=== PATIENT | male | born 1985 ===

== ENCOUNTER 2018-06-05 09:53 | Inpatient (IN) | payer BC ==
[2018-06-05 10:04] VITALS: BMI 36.1
--- NOTE | 2018-06-05 10:51 | ED PDOC ---
HPI: Back Additional Complaint(s): Pt is a 32 y/o male with hx of Lumbar disc herniation w/ nerve impingement presents to ED for Laminectomy tomorrow under Dr. Bess. At moment states he has dull ache in lower back that is manageable and does not need any analgesic medication. <Sruthi Muñoz - Last Filed: 06/06/18 08:46> <Brittani Weber - Last Filed: 06/06/18 08:50> Time Seen by Provider: 06/05/18 10:15 Chief Complaint (Nursing): Back Pain Past Medical History Reviewed: Historical Data, Nursing Documentation, Vital Signs Vital Signs: Last Vital Signs Temp 98.1 F 06/05/18 10:20 Pulse 86 06/05/18 10:20 Resp 18 06/05/18 10:20 BP 147/85 06/05/18 10:20 Pulse Ox 97 06/05/18 10:20 - Medical History PMH: No Chronic Diseases, Asthma - Surgical History Surgical History: No Surg Hx - Family History Family History: States: No Known Family Hx - Social History Ex-Smoker (has not smoked in the last 12 months): No <Sruthi Muñoz - Last Filed: 06/06/18 08:46> Reviewed: Historical Data Vital Signs: Last Vital Signs Temp 98.6 F 06/06/18 08:20 Pulse 60 06/06/18 08:20 Resp 20 06/06/18 08:20 BP 129/69 06/06/18 08:20 Pulse Ox 97 06/06/18 08:48 <Brittani Weber - Last Filed: 06/06/18 08:50> - Home Medications Home Medications: Ambulatory Orders Medication Instructions Recorded Naproxen Sodium [Aleve] 2 tab PO DAILY PRN 06/05/18 - Allergies Allergies/Adverse Reactions: Allergies Allergy/AdvReac Type Severity Reaction Status Date / Time shrimp Allergy ITCHING Uncoded 06/05/18 17:18 Supervising Attending Note - Supervising Attending Note The Documented history was done by the: Physician Flight Crew Ordnanceman, Attending Physician The documented physical exam was done by the: Physician Flight Crew Ordnanceman, Attending Physician The documented procedures were done by the: Physician Flight Crew Ordnanceman, Attending Physic kassi - Attestation: I have personally seen and examined this patient.: Yes I have fully participated in the care of the patient.: Yes I have reviewed all pertinent clinical information: Yes <Brittani Weber - Last Filed: 06/06/18 08:50> Review of Systems Constitutional: Negative for: Fever, Chills Cardiovascular: Negative for: Chest Pain, Palpitations Respiratory: Negative for: Cough, Shortness of Breath Gastrointestinal: Negative for: Nausea, Vomiting, Abdominal Pain Genitourinary Male: Negative for: Dysuria Neurological: Negative for: Weakness, Numbness, Incoordination <Sruthi Muñoz - Last Filed: 06/06/18 08:46> ROS Statement: Except As Marked, All Systems Reviewed And Found Negative <Brittani Weber - Last Filed: 06/06/18 08:50> Physical Exam - Physical Exam Appears: Positive for: Well, No Acute Distress Head Exam: Positive for: NORMAL INSPECTION Skin: Positive for: Normal Color Eye Exam: Positive for: Normal appearance Neck: Positive for: Normal Cardiovascular/Chest: Positive for: Regular Rate, Rhythm Respiratory: Positive for: Normal Breath Sounds Gastrointestinal/Abdominal: Positive for: Normal Exam, Bowel Sounds Back: Positive for: Normal Inspection, Decreased ROM (limited by pain with extension). Negative for: Vertebral Tenderness DTR - Knee (L): 2+ Neurologic/Psych: Positive for: Alert, Oriented. Negative for: Motor/Sensory Deficits <Sruthi Muñoz - Last Filed: 06/06/18 08:46> - Reviewed Nursing Documentation Reviewed: Yes Vital Signs Reviewed: Yes <Brittani Weber - Last Filed: 06/06/18 08:50> - Laboratory Results Result Diagrams: 06/05/18 11:43 06/05/18 11:43 - ECG O2 Sat by Pulse Oximetry: 97 <Sruthi Muñoz - Last Filed: 06/06/18 08:46> - Laboratory Results Result Diagrams: 06/05/18 11:43 06/05/18 11:43 Lab Results: PT 11.5 Seconds (9.8-13.1) 06/05/18 11:43 INR 1.0 06/05/18 11:43 APTT 29.6 Seconds (25.6-37.1) 06/05/18 11:43 Urine Color Yellow (YELLOW) 06/05/18 13:25 Urine Clarity Slighty-cloudy (Clear) 06/05/18 13:25 Urine pH 7.0 (5.0-8.0) 06/05/18 13:25 Ur Specific [place] 1.021 (1.003-1.030) 06/05/18 13:25 Urine Protein Negative mg/dL (NEGATIVE) 06/05/18 13:25 Urine Glucose (UA) Neg mg/dL (NEGATIVE) 06/05/18 13:25 Urine Ketones Negative mg/dL (NEGATIVE) 06/05/18 13:25 Urine Blood Negative (NEGATIVE) 06/05/18 13:25 Urine Nitrate Negative (NEGATIVE) 06/05/18 13:25 Urine Bilirubin Negative (NEGATIVE) 06/05/18 13:25 Urine Urobilinogen 0.2-1.0 mg/dL (0.2-1.0) 06/05/18 13:25 Ur Leukocyte Esterase Neg Naif/uL (Negative) 06/05/18 13:25 Urine RBC (Auto) 1 /hpf (0-3) 06/05/18 13:25 Urine Microscopic WBC 1 /hpf (0-5) 06/05/18 13:25 Ur Squamous Epith Cells < 1 /hpf (0-5) 06/05/18 13:25 <Brittani Weber - Last Filed: 06/06/18 08:50> Medical Decision Making Medical Decision Making: PReop studies sent: CBC, BMP, COags, EKG- sinus ana maría, Cxray. For Laminectomy <Sruthi Muñoz - Last Filed: 06/06/18 08:46> Disposition - Patient ED Disposition Is Patient to be Admitted: Yes Doctor Will See Patient In The: Hospital Counseled Patient/Family Regarding: Studies Performed, Diagnosis, Need For Followup - Disposition Disposition Time: 15:00 <Sruthi Muñoz - Last Filed: 06/06/18 08:46> Discussed With Dr.: Min Alcantar Doctor Will See Patient In The: ED - Disposition Disposition Time: 11:00 - Pt Status Changed To: Hospital Disposition Of: Inpatient - Admit Certification Admit to Inpatient:: After my assessment, the patient will require hospitalization for at least two midnights. This is because of the severity of symptoms shown, intensity of services needed, and/or the medical risk in this patient being treated as an outpatient. - POA Present On Arrival: None <Brittani Weber - Last Filed: 06/06/18 08:50> - Clinical Impression Clinical Impression: Back pain - Disposition Condition: FAIR
[2018-06-05 11:57] LABS: BASO % 0.4 % (0.0-2.0); EOS # 0.1 K/uL (0.0-0.7); HEMOGLOBIN 14.1 g/dL (12.0-18.0); LYMPH # 2.6 K/uL (1.0-4.3); LYMPH % 35.4 % (20.0-40.0); MEAN CORPUSCULAR HEMOGLOBIN 29.7 pg (27.0-31.0); MEAN CORPUSCULAR HGB CONC 34.1 g/dL (33.0-37.0); MEAN PLATELET VOLUME 8.4 fl (7.2-11.7); MONO # 0.7 K/uL (0.0-0.8); MONO % 9.5 % (0.0-10.0); NEUT # 3.9 K/uL (1.8-7.0); NEUT % 53.7 % (50.0-75.0); NRBC % 0.2 % (0.0-0.0); RBC 4.74 Mil/uL (4.40-5.90); RED CELL DISTRIBUTION WIDTH 13.1 % (11.5-14.5); WHITE BLOOD COUNT 7.3 K/uL (4.8-10.8)
[2018-06-05 12:04] LABS: PROTHROMBIN TIME 11.5 Seconds (9.8-13.1)
[2018-06-05 12:07] LABS: PARTIAL THROMBOPLASTIN TIME 29.6 Seconds (25.6-37.1)
[2018-06-05 12:14] LABS: BLOOD UREA NITROGEN 13 mg/dl (9-20); CALCIUM 9.8 mg/dL (8.4-10.2); GFR NON-AFRICAN AMERICAN > 60
--- NOTE | 2018-06-05 12:34 | RAD ---
Date of service: 06/05/2018 HISTORY: pre-op clearance COMPARISON: No prior. FINDINGS: LUNGS: The lungs are well inflated and clear. PLEURA: No pleural effusions or pneumothorax. CARDIOVASCULAR: The heart is normal in size. No aortic atherosclerotic calcifications present. OSSEOUS STRUCTURES: Within normal limits for the patient's age. VISUALIZED UPPER ABDOMEN: Normal. OTHER FINDINGS: None. IMPRESSION: No active pulmonary disease.
[2018-06-05 14:00] LABS: SQUAMOUS EPITHIAL < 1 /hpf (0-5); URINE BILIRUBIN NEGATIVE (NEGATIVE); URINE BLOOD NEGATIVE (NEGATIVE); URINE CLARITY SLIGHTY-CLOUDY (Clear); URINE COLOR YELLOW (YELLOW); URINE GLUCOSE (UA) NEG (NEGATIVE); URINE LEUKOCYTE ESTERASE NEG Leu/uL (Negative); URINE PROTEIN NEGATIVE (NEGATIVE); URINE UROBILINOGEN 0.2-1.0 mg/dL (0.2-1.0)
--- NOTE | 2018-06-05 16:44 | CP.PCM.CON ---
History of Present Illness - History of Present Illness History of Present Illness: Neurosurgical consult: Dr. Bess Patient is a 32 y/o male with complaints of severe lower back pain radiating to his LLE. 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 The pain has progressively worsened over the past few months, resistant to conservative means with exercises and oral medications. He has had difficulties with his daily activities, especially sitting, due to the pain. There is radiating pain/numbness and tingling that travels down LLE frequently. He denies any bowel/bladder dysfunction. He denies CP/SOB/N/V/D/fever/dysuria/melena. PMH: Asthma PSH: none meds: Aleve prn pain allergy: shrimp SH: denies tobacco, ETOH socially, denies drug use Review of Systems - Review of Systems All systems: reviewed and no additional remarkable complaints except Review of Systems: as per HPI Past Patient History - Past Medical History & Family History Past Medical History?: Yes Past Family History: Reviewed and not pertinent - Past Social History Smoking Status: Never Smoked Alcohol: Social Drugs: Denies - CARDIAC Hx Cardiac Disorders: No - PULMONARY Hx Respiratory Disorders: Yes (asthma) Hx Asthma: Yes (last attack 2015) - NEUROLOGICAL Hx Neurological Disorder: No - HEENT Hx HEENT Problems: No Other/Comment: wears glasses - RENAL Hx Chronic Kidney Disease: No - ENDOCRINE/METABOLIC Hx Endocrine Disorders: No - HEMATOLOGICAL/ONCOLOGICAL Hx Blood Disorders: No Hx AIDS: No Hx Human Immunodeficiency Virus (HIV): No (denies) - INTEGUMENTARY Hx Dermatological Problems: No - MUSCULOSKELETAL/RHEUMATOLOGICAL Hx Musculoskeletal Disorders: Yes Hx Falls: No Hx Herniated Disk: Yes (L5-S1) Other/Comment: herniated disc w stenosis - GASTROINTESTINAL Hx Gastrointestinal Disorders: No - GENITOURINARY/GYNECOLOGICAL Hx Genitourinary Disorders: No - PSYCHIATRIC Hx Psychophysiologic Disorder: No Hx Substance Use: No - SURGICAL HISTORY Hx Surgeries: No - ANESTHESIA Hx Anesthesia: No Meds Allergies/Adverse Reactions: Allergies Allergy/AdvReac Type Severity Reaction Status Date / Time shrimp Allergy ITCHING Uncoded 06/05/18 17:18 - Medications Medications: as per med rec Physical Exam - Constitutional Appears: Well, No Acute Distress - Head Exam Head Exam: ATRAUMATIC, NORMOCEPHALIC - Eye Exam Eye Exam: EOMI, Normal appearance, PERRL - ENT Exam ENT Exam: Mucous Membranes Moist - Respiratory Exam Respiratory Exam: NORMAL BREATHING PATTERN - GI/Abdominal Exam GI & Abdominal Exam: Soft. absent: Tenderness - Back Exam Additional comments: No midline or paraspinal tenderness no lesions/masses/erythema sensation intact SP/DP/TN motor intact EHL/FHL/TA/G, diminished to LLE neg clonus neg SLR b/l - Neurological Exam Neurological exam: Alert, CN II-XII Intact, Oriented x3 - Psychiatric Exam Psychiatric exam: Normal Affect, Normal Mood - Skin Skin Exam: Normal Color, Warm Results - Vital Signs Recent Vital Signs: Last Vital Signs Temp 98.1 F 06/05/18 15:39 Pulse 73 06/05/18 15:39 Resp 16 06/05/18 15:39 BP 142/76 06/05/18 15:39 Pulse Ox 97 06/05/18 15:39 - Labs Result Diagrams: 06/05/18 11:43 06/05/18 11:43 Labs: Laboratory Results - last 24 hr 06/05/18 06/05/18 06/05/18 11:43 11:43 11:43 WBC 7.3 RBC 4.74 Hgb 14.1 Hct 41.3 MCV 87.0 MCH 29.7 MCHC 34.1 RDW 13.1 Plt Count 255 MPV 8.4 Neut % (Auto) 53.7 Lymph % (Auto) 35.4 [place] % (Auto) 9.5 Eos % (Auto) 1.0 Baso % (Auto) 0.4 Neut # (Auto) 3.9 Lymph # (Auto) 2.6 [place] # (Auto) 0.7 Eos # (Auto) 0.1 Baso # (Auto) 0.0 PT 11.5 INR 1.0 APTT 29.6 Sodium 141 Potassium 4.5 Chloride 102 Carbon Dioxide 25 Anion Gap 19 BUN 13 Creatinine 0.8 Est GFR ( Amer) > 60 Est GFR (Non-Af Amer) > 60 Random Glucose 87 Calcium 9.8 Urine Color Urine Clarity Urine pH Ur Specific [place] Urine Protein Urine Glucose (UA) Urine Ketones Urine Blood Urine Nitrate Urine Bilirubin Urine Urobilinogen Ur Leukocyte Esterase Urine RBC (Auto) Urine Microscopic WBC Ur Squamous Epith Cells Blood Type Antibody Screen BBK History Checked 06/05/18 06/05/18 06/05/18 13:25 13:26 16:18 WBC RBC Hgb Hct MCV MCH MCHC RDW Plt Count MPV Neut % (Auto) Lymph % (Auto) [place] % (Auto) Eos % (Auto) Baso % (Auto) Neut # (Auto) Lymph # (Auto) [place] # (Auto) Eos # (Auto) Baso # (Auto) PT INR APTT Sodium Potassium Chloride Carbon Dioxide Anion Gap BUN Creatinine Est GFR ( Amer) Est GFR (Non-Af Amer) Random Glucose Calcium Urine Color Yellow Urine Clarity Slighty-cloudy Urine pH 7.0 Ur Specific [place] 1.021 Urine Protein Negative Urine Glucose (UA) Neg Urine Ketones Negative Urine Blood Negative Urine Nitrate Negative Urine Bilirubin Negative Urine Urobilinogen 0.2-1.0 Ur Leukocyte Esterase Neg Urine RBC (Auto) 1 Urine Microscopic WBC 1 Ur Squamous Epith Cells < 1 Blood Type Cancelled Antibody Screen Cancelled BBK History Checked Cancelled No verified bt - Impressions Impression: Accession No. : [id number] Patient Name / ID : STAS SIM / [id number] Exam Date : 05/16/2018 17:09:54 ( Approved ) Study Comment : Sex / Age : M / 32Y Creator : Pelon Krishnan MD Dictator : Pelon Krishnan MD Paper Sales Representative : Brine Tank Tender : Pelon Krishnan MD Approver2 : Report Date : 05/17/2018 11:26:14 My Comment : Date of service: 05/16/2018 PROCEDURE: MR LUMBAR SPINE WITHOUT CONTRAST HISTORY: LEFT LEG PAIN COMPARISON: None available. TECHNIQUE: Multiecho multiplanar sequences were performed through the lumbar spine without the use of intravenous contrast. FINDINGS: Normal lumbar lordosis. Vertebral body heights are preserved. Marrow signal unremarkable. Adequate hydration is appreciated throughout the upper mid intervertebral discs with marked disc a richter and mild disc height loss at L5-S1. Conus medullaris unremarkable at the level of L1. Paraspinal soft tissues are unremarkable. T12-L1: No disc herniation, spinal canal stenosis or neural foraminal narrowing. L1-2: No disc herniation, spinal canal stenosis or neural foraminal narrowing. L2-3: No disc herniation, spinal canal stenosis or neural foraminal narrowing. L3-4: No disc herniation, spinal canal stenosis or neural foraminal narrowing. L4-5: No disc herniation, spinal canal stenosis or neural foraminal narrowing. Mild facet joint degenerative changes appear symmetric. L5-S1: There is left paracentral/lateral moderate-sized disc herniation impinging the descending left S1 nerve root and potentially deflecting the thecal sac posteriorly but without deformity of the thecal sac. Mild left gerardo canal stenosis results. There is [id number] facet joint degenerative change symmetrically identified as well without neural foraminal stenosis. OTHER FINDINGS: None. IMPRESSION: Left paracentral/lateral L5-S1 disc herniation impinging the descending left S1 nerve root and causing mild left gerardo canal stenosis. [id number] facet joint degenerative changes are identified without neural foraminal stenosis. Assessment & Plan (1) Lumbar spondylosis Assessment and Plan: -Dr. Bess recommends L5-S1 Lumbar laminectomy in OR tomorrow AM -Risks/benefits/alternatives were explained to patient who understands and agrees to proceed with above. -NPO pMN -above d/w Dr. Bess in agreement Status: Acute
--- NOTE | 2018-06-05 17:40 | CP.PCM.HP ---
History of Present Illness - History of Present Illness History of Present Illness: This is a 32 y/o male admitted through to the Er due to intractable pain . Claims that pain was work related and started in March as an annoying discomfort in the lower back and progressively affected the left lower limb. He was given pain medications, phys therapy but to no avail. Symptoms worsen and seen his PMD who ordered MRI which showed herniated in L5 S1 causing hemicanal stenosis. He had seen Dr Bess and advised surgery due to intractable pain. Present on Admission - Present on Admission Any Indicators Present on Admission: No History of DVT/PE: No Urinary Catheter: No Decubitus Ulcer Present: No Past Patient History - Past Medical History & Family History Past Medical History?: Yes Past Family History: Reviewed and not pertinent - Past Social History Smoking Status: Never Smoked Alcohol: Social Drugs: Denies - CARDIAC Hx Cardiac Disorders: No - PULMONARY Hx Respiratory Disorders: Yes (asthma) Hx Asthma: Yes (last attack 2015) - NEUROLOGICAL Hx Neurological Disorder: No - HEENT Hx HEENT Problems: No Other/Comment: wears glasses - RENAL Hx Chronic Kidney Disease: No - ENDOCRINE/METABOLIC Hx Endocrine Disorders: No - HEMATOLOGICAL/ONCOLOGICAL Hx Blood Disorders: No Hx AIDS: No Hx Human Immunodeficiency Virus (HIV): No (denies) - INTEGUMENTARY Hx Dermatological Problems: No - MUSCULOSKELETAL/RHEUMATOLOGICAL Hx Musculoskeletal Disorders: Yes Hx Falls: No Hx Herniated Disk: Yes (L5-S1) Other/Comment: herniated disc w stenosis - GASTROINTESTINAL Hx Gastrointestinal Disorders: No - GENITOURINARY/GYNECOLOGICAL Hx Genitourinary Disorders: No - PSYCHIATRIC Hx Psychophysiologic Disorder: No Hx Substance Use: No - SURGICAL HISTORY Hx Surgeries: No - ANESTHESIA Hx Anesthesia: No Meds Allergies/Adverse Reactions: Allergies Allergy/AdvReac Type Severity Reaction Status Date / Time shrimp Allergy ITCHING Uncoded 06/05/18 17:18 Physical Exam - Head Exam Head Exam: NORMAL INSPECTION - Eye Exam Eye Exam: Normal appearance - ENT Exam ENT Exam: Mucous Membranes Moist - Cardiovascular Exam Cardiovascular Exam: REGULAR RHYTHM - GI/Abdominal Exam GI & Abdominal Exam: Normal Bowel Sounds - Neurological Exam Neurological exam: CN II-XII Intact - Psychiatric Exam Psychiatric exam: Normal Mood Results - Vital Signs Recent Vital Signs: Last Vital Signs Temp 98.1 F 06/05/18 15:39 Pulse 73 06/05/18 15:39 Resp 16 06/05/18 15:39 BP 142/76 06/05/18 15:39 Pulse Ox 97 06/05/18 15:39 - Labs Result Diagrams: 06/05/18 11:43 06/05/18 11:43 Labs: Laboratory Results - last 24 hr 06/05/18 06/05/18 06/05/18 11:43 11:43 11:43 WBC 7.3 RBC 4.74 Hgb 14.1 Hct 41.3 MCV 87.0 MCH 29.7 MCHC 34.1 RDW 13.1 Plt Count 255 MPV 8.4 Neut % (Auto) 53.7 Lymph % (Auto) 35.4 [place] % (Auto) 9.5 Eos % (Auto) 1.0 Baso % (Auto) 0.4 Neut # (Auto) 3.9 Lymph # (Auto) 2.6 [place] # (Auto) 0.7 Eos # (Auto) 0.1 Baso # (Auto) 0.0 PT 11.5 INR 1.0 APTT 29.6 Sodium 141 Potassium 4.5 Chloride 102 Carbon Dioxide 25 Anion Gap 19 BUN 13 Creatinine 0.8 Est GFR ( Amer) > 60 Est GFR (Non-Af Amer) > 60 Random Glucose 87 Calcium 9.8 Urine Color Urine Clarity Urine pH Ur Specific [place] Urine Protein Urine Glucose (UA) Urine Ketones Urine Blood Urine Nitrate Urine Bilirubin Urine Urobilinogen Ur Leukocyte Esterase Urine RBC (Auto) Urine Microscopic WBC Ur Squamous Epith Cells Blood Type Blood Type Confirm Antibody Screen BBK History Checked 06/05/18 06/05/18 06/05/18 13:25 13:26 16:18 WBC RBC Hgb Hct MCV MCH MCHC RDW Plt Count MPV Neut % (Auto) Lymph % (Auto) [place] % (Auto) Eos % (Auto) Baso % (Auto) Neut # (Auto) Lymph # (Auto) [place] # (Auto) Eos # (Auto) Baso # (Auto) PT INR APTT Sodium Potassium Chloride Carbon Dioxide Anion Gap BUN Creatinine Est GFR ( Amer) Est GFR (Non-Af Amer) Random Glucose Calcium Urine Color Yellow Urine Clarity Slighty-cloudy Urine pH 7.0 Ur Specific [place] 1.021 Urine Protein Negative Urine Glucose (UA) Neg Urine Ketones Negative Urine Blood Negative Urine Nitrate Negative Urine Bilirubin Negative Urine Urobilinogen 0.2-1.0 Ur Leukocyte Esterase Neg Urine RBC (Auto) 1 Urine Microscopic WBC 1 Ur Squamous Epith Cells < 1 Blood Type Cancelled O POSITIVE Blood Type Confirm Antibody Screen Cancelled Negative BBK History Checked Cancelled No verified bt 06/05/18 16:30 WBC RBC Hgb Hct MCV MCH MCHC RDW Plt Count MPV Neut % (Auto) Lymph % (Auto) [place] % (Auto) Eos % (Auto) Baso % (Auto) Neut # (Auto) Lymph # (Auto) [place] # (Auto) Eos # (Auto) Baso # (Auto) PT INR APTT Sodium Potassium Chloride Carbon Dioxide Anion Gap BUN Creatinine Est GFR ( Amer) Est GFR (Non-Af Amer) Random Glucose Calcium Urine Color Urine Clarity Urine pH Ur Specific [place] Urine Protein Urine Glucose (UA) Urine Ketones Urine Blood Urine Nitrate Urine Bilirubin Urine Urobilinogen Ur Leukocyte Esterase Urine RBC (Auto) Urine Microscopic WBC Ur Squamous Epith Cells Blood Type Blood Type Confirm O POSITIVE Antibody Screen BBK History Checked Assessment & Plan (1) Lumbosacral disc herniation Status: Acute (2) Lumbosacral radiculopathy at S1 Status: Acute (3) Lumbosacral radiculopathy at L5 Status: Acute - Assessment and Plan (Free Text) Plan: Cont meds Con ttx Cont meds check EKG NSR CXR normal medically stable for surgery
--- NOTE | 2018-06-05 20:28 | CARD ---
APPROVED REPORT Date of service: 06/05/2018 EKG Measurement Heart [id number] <Conclusion> Sinus bradycardia with sinus arrhythmia Otherwise normal ECG
[2018-06-06] MEDS ORDERED: Lactated Ringer's 1,000 ML IV SCH ×2 (00:01→11:00)
[2018-06-06] MEDS ORDERED: Morphine 4 MG/ML VIAL IVP PRN ×2 (00:15→10:51)
[2018-06-06] MEDS ORDERED: Morphine 4 MG/ML VIAL ONE (00:16)
[2018-06-06] MEDS ORDERED: Absorbable Gelatin Sponge Size 12-7 ONE (07:42)
[2018-06-06] MEDS ORDERED: Lidocaine 1% w Epi 1:100,000 Inj ONE (07:43)
[2018-06-06] MEDS ORDERED: Thrombin Topical 5,000 Int Units Spray Kit ONE (07:43)
[2018-06-06] MEDS ORDERED: Bupivacaine 0.5% Inj(30mL) ONE (07:43)
[2018-06-06] MEDS ORDERED: Bacitracin Ointment 30 GM TUBE ONE (07:43)
[2018-06-06] MEDS ORDERED: Propofol 10 mg/ml Inj (20 ML) ONE ×2 (08:01→08:03)
[2018-06-06] MEDS ORDERED: Midazolam 2 MG/2 ML VIAL ONE (08:01)
[2018-06-06] MEDS ORDERED: Rocuronium 10 mg/ml (5 ml) ONE (08:02)
[2018-06-06] MEDS ORDERED: Lidocaine 4% (Laryng-O-Jet) Kit MM ONE (08:02)
[2018-06-06] MEDS ORDERED: Succinylcholine Chloride 20 mg/ml Syr (5 ml) IV ONE (08:02)
[2018-06-06] MEDS ORDERED: Lactated Ringer's 1,000 ML IV ONE ×2 (08:35→09:47)
[2018-06-06] MEDS ORDERED: HEMOSTATIC MATRIX 10 ML DIS.NEEDLE TOP ONE ×2 (09:00→09:50)
[2018-06-06] MEDS ORDERED: Dexamethasone 4 mg/1 ml ONE (09:11)
[2018-06-06] MEDS ORDERED: Phenylephrine 10 mg/ml Inj ONE (09:36)
[2018-06-06] MEDS ORDERED: Neostigmine 1:1000 (1 mg/ml) Inj ONE (09:55)
[2018-06-06] MEDS ORDERED: Bupivacaine 0.5% 50 ML IJ ONE ×2 (10:05)
[2018-06-06] MEDS ORDERED: HYDROmorphone 0.5 mg/0.5 ml ISec IVP PRN (10:37)
--- NOTE | 2018-06-06 10:50 | PCM.SURG1 ---
Surgeon's Initial Post Op Note - Surgeon's Notes Surgeon: Bill Bess MD Director Graphics: Ricardo Arevalo PA-C Type of Anesthesia: General Endo Anesthesia Administered By: Dejan Kearney MD Pre-Operative Diagnosis: Lumbar spondylosis Operative Findings: see complete operative report Post-Operative Diagnosis: L5-S1 lumbar spondylosis Operation Performed: L5-S1 lumbar laminectomy Specimen/Specimens Removed: none Estimated Blood Loss: EBL {In ML}: 150 Blood Products Given: N/A Drains Used: Lucio Montoya (L back) Post-Op Condition: Good Date of Surgery/Procedure: 06/06/18 Time of Surgery/Procedure: 09:00
[2018-06-06] MEDS ORDERED: Oxycodone/Acetaminophen 5/325 mg Tab PO PRN ×2 (10:51)
--- NOTE | 2018-06-06 14:44 | OP ---
PROCEDURE DATE: 06/06/2018 PREOPERATIVE DIAGNOSIS: Herniated lumbar disk at L5-S1 on the left side. POSTOPERATIVE DIAGNOSIS: Herniated lumbar disk at L5-S1 on the left side. PROCEDURE: Left L5-S1 hemilaminotomy, medial facetectomy, removal of extruded fragment, lumbar laminectomy at L5-S1 and removal of herniated disk. SURGEON: Bill Bess MD BIOINFORMATICS ENGINEER: Ricardo Arevalo, physician clinical nursing assistant who helped me to perform the surgery. Ricardo Arevalo stayed throughout the case from the beginning to the end of the case. INSTRUMENTS USED: Fluoroscopy has been used. Microscope has been used. DESCRIPTION OF PROCEDURE: The patient was brought to the operating room and after general endotracheal anesthesia, placed in a prone position on a Lucio table. Care was taken to protect all the pressure points. Back of the lumbar area thoroughly prepped and draped in the same sterile manner after marking the skin incisions for lumbar laminectomy at L5-S1. After prepping and draping the area, skin has been incised. Bleeding skin has been controlled with bipolar radiographic technologist. Using a Bovie radiographic technologist, paraspinal muscles have been detached, attachments of spinous process, lamina of L5-S1 on the left side. Lizeth retractor had been applied to alter the facet joint of L5-S1. Confirmation was done with the help of fluoroscopy. Under microscopic magnification by using a high-speed drill, lamina of L5-S1, medial part of the L5-S1 had been drilled. Drilling is continued until top and bottom of the ligamentum flavum seen. Drilling was also continued on the medial part of the facets until the torn of ligament is seen. Once this was done, thinned out the lamina, medial part of the facets and ligamentum flavum had been removed, nerve root and neural tube have been retracted medially. There was an extruded disk fragment noted. The annulus has been incised. The disk fragments have been removed. ____ found to be hard, but has been left in place ____. After that hemostasis was achieved. Lucio drain placed in the wound, brought out through a separate stab neck skin incision. Muscles and fascia were closed with 1 Vicryl, subcutaneous tissue with 3-0 Vicryl, skin has been done with intradermal stitches. The patient tolerated the procedure. After procedure, mobilized to the recovery room in stabilized condition. Bill Bess MD
[2018-06-06] MEDS: ceFAZolin 2 GM in Sodium Chloride 0.9% 100 ML IVPB SCH (16:20)
--- NOTE | 2018-06-06 17:13 | RAD ---
Date of service: 06/06/2018 PROCEDURE: Intraoperative fluoroscopy HISTORY: LUMBAR LAMINECTOMY COMPARISON: Not provided TECHNIQUE: Intraoperative fluoroscopy was provided for lumbar laminectomy. Total time of fluoroscopy was 3.0 sec. Cumulative dose was 2.37 mGy. FINDINGS: A single fluoroscopic spot film is submitted. IMPRESSION: Fluoroscopy provided.
--- NOTE | 2018-06-06 23:35 | CP.PCM.PN ---
Subjective - Date & Time of Evaluation Date of Evaluation: 06/06/18 Time of Evaluation: 15:30 - Subjective Subjective: Pt was seen and assessed at bedside. Comfortable at this time, and in very minimal pain. S/P lumbar laminectomy with Dr. Bess; HENNY drain in place. Case discussed with NANDINI Baeza. Pt OOB, has voided, and tolerated soft food so far. Review of Systems - EENT Eyes: UNREMARKABLE Ears: UNREMARKABLE Nose/Mouth/Throat: UNREMARKABLE - Cardiovascular Cardiovascular: UNREMARKABLE - Respiratory Respiratory: UNREMARKABLE - Gastrointestinal Gastrointestinal: UNREMARKABLE - Genitourinary Genitourinary: UNREMARKABLE - Musculoskeletal Additional comments: manageable pain in the lower back at this time. - Integumentary Integumentary: UNREMARKABLE - Neurological Neurological: UNREMARKABLE Objective - Vital Signs/Intake and Output Vital Signs (last 24 hours): Temp Pulse Resp BP Pulse Ox 99.3 F 82 20 133/78 97 06/06/18 20:00 06/06/18 20:00 06/06/18 20:00 06/06/18 20:00 06/06/18 20:00 Intake and Output: 06/06/18 06/07/18 18:59 06:59 Intake Total 3600 Output Total 575 Balance 3025 - Medications Medications: Current Medications Acetaminophen (Tylenol 325mg Tab) 650 mg PO Q4 PRN PRN Reason: Fever 101 degrees fahrenheit Cyclobenzaprine HCl (Flexeril) 10 mg PO Q8 PRN PRN Reason: Muscle spasm Docusate Sodium (Colace) 100 mg PO BID [facility] Last Admin: 06/06/18 16:20 Dose: 100 mg Cefazolin Sodium 2 gm/ Sodium (Chloride) 100 mls @ 100 mls/hr IVPB Q8 [facility]; Protocol Stop: 06/08/18 17:01 Last Admin: 06/06/18 16:20 Dose: 100 mls/hr Morphine Sulfate (Morphine) 2 mg IVP Q4 PRN PRN Reason: Pain, severe (8-10) Ondansetron HCl (Zofran Inj) 4 mg IVP Q4 PRN PRN Reason: Nausea/Vomiting Oxycodone/Acetaminophen (Percocet 5/325 Mg Tab) 1 tab PO Q4 PRN PRN Reason: Pain, Mild (1-3) Stop: 06/09/18 10:52 Oxycodone/Acetaminophen (Percocet 5/325 Mg Tab) 2 tab PO Q4 PRN PRN Reason: Pain, moderate (4-7) Stop: 06/09/18 10:52 - Labs Labs: 06/05/18 11:43 06/05/18 11:43 PT 11.5 Seconds (9.8-13.1) 06/05/18 11:43 INR 1.0 06/05/18 11:43 APTT 29.6 Seconds (25.6-37.1) 06/05/18 11:43 - Constitutional Appears: Well - Head Exam Head Exam: NORMOCEPHALIC - Eye Exam Eye Exam: EOMI, Normal appearance, PERRL Pupil Exam: NORMAL ACCOMODATION - ENT Exam ENT Exam: Mucous Membranes Moist - Neck Exam Neck Exam: Full ROM - Respiratory Exam Respiratory Exam: Clear to Ausculation Bilateral - Cardiovascular Exam Cardiovascular Exam: REGULAR RHYTHM, +S1, +S2 - GI/Abdominal Exam GI & Abdominal Exam: Normal Bowel Sounds - Extremities Exam Extremities Exam: Full ROM, Normal Capillary Refill, Normal Inspection - Back Exam Back Exam: paraspinal tenderness Additional comments: mild painful ROM in the lower back. Slow ambulation at this time s/p sx. - Neurological Exam Neurological Exam: Alert, Awake, Oriented x3 - Psychiatric Exam Psychiatric exam: Normal Affect, Normal Mood - Skin Skin Exam: Dry, Warm Assessment and Plan - Assessment and Plan (Free Text) Assessment: Assessment/Impression/Major Problems Now: 1.) S/P Lumbar Laminectomy -L5-S1 Laminectomy done by Dr. Bess. -PT/OT recommendations appreciated. -Pt OOB and ambulating carefully at this time. -Decadron 4 mg BID started post-operatively. -Assess HENNY drain output. -neurovascular checks; continue current treatment.
[2018-06-07] MEDS: ceFAZolin 2 GM in Sodium Chloride 0.9% 100 ML IVPB SCH ×3 (00:06→16:23)
[2018-06-07] MEDS ORDERED: Alum-Mag Hydrox-Simethicone Susp (30 mL) PO STA (00:36)
[2018-06-07] MEDS ORDERED: Sodium Chloride 0.9% 1,000 ML IV SCH (00:45)
--- NOTE | 2018-06-07 01:00 | PCM.RRT ---
<Cecilia Farris - Last Filed: 06/07/18 04:12> INFRASTRU[employer]URE SECURITY ARCHITECT Nurse Assessment - Respiratory Oxygen Delivery Method: Room Air - Diagnostic Test Ordered EKG: Yes - Stat Labs Ordered INFRASTRUCTURE SECURITY ARCHITECT Stat Labs Ordered: TROPONIN (negative) I.Reason for INFRASTRUCTURE SECURITY ARCHITECT - A) Acute Change in Patient: (Select all that apply): Staff member or family is worried about patient Subjective: INFRASTRUCTURE SECURITY ARCHITECT call time: 12:31 am INFRASTRUCTURE SECURITY ARCHITECT Arrival time: 12:32 am INFRASTRUCTURE SECURITY ARCHITECT called by: RN Reason for INFRASTRUCTURE SECURITY ARCHITECT: chest pain Initial Vitals: BP 120/60 HR 72 SPO2 97% RA RR 18 T 99F INFRASTRUCTURE SECURITY ARCHITECT called for chest pain for 32-year-old man with no PMH on post-op day 1 (L5- S1 lumbar laminectomy). Upon arrival to INFRASTRUCTURE SECURITY ARCHITECT pt was in no acute distress lying comfortable in bed. He remained alert and oriented throughout [employer]STRU[employer]URE SECURITY ARCHITECT. Patient described pain as 1-2/10 severity, did not radiate, an "annoying" dull pain. He denied SOB, chest pain, difficulty breathing, headache, change in vision and nausea. Prior to his chest pain he was ambulating around unit. EKG was done showing T wave changes compared to initial EKG however repeat EKG normal. Troponin ordered and WNL x1, series Q6H x2 recommended. Patient given 0.4mg sublingual nitro x2, Maalox 30 ml PO, 1L NS bolus with chest pain relief. Chart reviewed, WNL. Patient transferred to telemetry for constant cardiac monitoring, recommend repeat EKG in tele. End Vitals: BP 113/69 HR 98 SPO2 96% RA RR 18 [employer]STRU[employer]URE [employer]URITY ARCHITECT end time: 1:10 am INFRASTRUCTURE SECURITY ARCHITECT Team: Dr Reddy, Dr Arechiga, Dr Farris - Constitutional Appears: Non-toxic, No Acute Distress - Head Head Exam: NORMAL INSPECTION - Eyes Eye Exam: Normal appearance - Respiratory Exam Respiratory Exam: NORMAL BREATHING PATTERN. absent: Chest Wall Tenderness, Respiratory Distress - Cardiovascular Exam Cardiovascular Exam: +S1, +S2 - GI/Abdominal Exam GI & Abdominal Exam: Soft. absent: Guarding, Rigid, Tenderness - Neurological Exam Neurological Exam: Alert, Awake, Oriented x3 - Extremities Exam Extremities Exam: absent: Calf Tenderness, Pedal Edema, Tenderness Plan - Assessment of Findings&Treatment Plan Patient transferred to telemetry for constant cardiac monitoring. Recommend repeat EKG in tele. <Varun Reddy - Last Filed: 06/07/18 06:53> IN[employer]RASTRUCTURE SECURITY ARCHITECT Nurse Assessment - Vital Signs Vital Signs: Rapid Response Vital Sign Blood Pressure 117/65 Pulse Rate 100 Respiratory Rate 20 Oxygen Saturation 97 - Vital Signs at end of INFRASTRUCTURE SECURITY ARCHITECT Vital Signs at end of INFRASTRUCTURE SECURITY ARCHITECT: Rapid Response End Vital Sign Blood Pressure 123/63 Pulse Rate 102 Respiratory Rate 20 O2 Sat by Pulse Oximetry 96 Attending/Attestation - Attestation I have personally seen and examined this patient.: Yes I have fully participated in the care of the patient.: Yes I have reviewed all pertinent clinical information, including history, physical exam and plan: Yes Notes (Text): 06/07/18 06:42 i saw, examined and discussed this patient with Dr Farris. This was a 32 years old male with no cardiac risk factors who under went L5-S3 laminectomy complaining of a localized 2/10 retrosternal chest pain with EKG showing T inversion in leads I, II, III, aVl. The pain was relieved some with 2 SL NTG and later with Maalox. The first Troponin was negative The repeated EKG post treatment showed NSR 79/min with no ST abnormalities and even some differences in the QRS pattern. The Impression is that the previous EKG had the limb leads misplaced and this could have been esophagitis. The Patient was transferred to Telemetry for cardiac monitoring. The PMD was called. Varun Reddy MD
[2018-06-07 05:26] LABS: MEAN CELL VOLUME 87.1 fl (80.0-94.0); MEAN CORPUSCULAR HGB CONC 33.4 g/dL (33.0-37.0); RBC 4.49 Mil/uL (4.40-5.90); RED CELL DISTRIBUTION WIDTH 13.1 % (11.5-14.5)
[2018-06-07 05:33] LABS: BLOOD UREA NITROGEN 12 mg/dl (9-20); CALCIUM 9.6 mg/dL (8.4-10.2); GFR NON-AFRICAN AMERICAN > 60
--- NOTE | 2018-06-07 09:18 | CARD ---
APPROVED REPORT Date of service: 06/07/2018 EKG Measurement Heart [id number] <Conclusion> Normal sinus rhythm Normal ECG
--- NOTE | 2018-06-07 09:18 | CARD ---
APPROVED REPORT Date of service: 06/07/2018 EKG Measurement Heart [id number] <Conclusion> Normal sinus rhythm with sinus arrhythmia Normal ECG
--- NOTE | 2018-06-07 11:13 | CP.PCM.PN ---
Subjective - Date & Time of Evaluation Date of Evaluation: 06/07/18 Time of Evaluation: 09:00 - Subjective Subjective: Patient seen and examined at bedside comfortable. Pain well controlled. No acute events overnight. Able to be OOB without issues. Denies CP/SOB/dizziness/fever. Objective - Vital Signs/Intake and Output Vital Signs (last 24 hours): Temp Pulse Resp BP Pulse Ox 98.2 F 85 18 132/86 98 06/07/18 08:00 06/07/18 08:00 06/07/18 08:00 06/07/18 08:00 06/07/18 08:00 Intake and Output: 06/07/18 06/07/18 06:59 18:59 Intake Total 1500 Output Total 65 Balance 1435 - Medications Medications: Current Medications Acetaminophen (Tylenol 325mg Tab) 650 mg PO Q4 PRN PRN Reason: Fever 101 degrees fahrenheit Cyclobenzaprine HCl (Flexeril) 10 mg PO Q8 PRN PRN Reason: Muscle spasm Dexamethasone (Decadron) 4 mg PO Q12 [facility] Stop: 06/09/18 23:16 Last Admin: 06/07/18 09:54 Dose: 4 mg Docusate Sodium (Colace) 100 mg PO BID [facility] Last Admin: 06/07/18 09:53 Dose: 100 mg Cefazolin Sodium 2 gm/ Sodium (Chloride) 100 mls @ 100 mls/hr IVPB Q8 [facility]; Protocol Stop: 06/08/18 17:01 Last Admin: 06/07/18 09:50 Dose: 100 mls/hr Sodium Chloride (Sodium Chloride 0.9%) 1,000 mls @ 999 mls/hr IV .Q1H1M [facility] Stop: 06/08/18 00:43 Morphine Sulfate (Morphine) 2 mg IVP Q4 PRN PRN Reason: Pain, severe (8-10) Ondansetron HCl (Zofran Inj) 4 mg IVP Q4 PRN PRN Reason: Nausea/Vomiting Oxycodone/Acetaminophen (Percocet 5/325 Mg Tab) 1 tab PO Q4 PRN PRN Reason: Pain, Mild (1-3) Stop: 06/09/18 10:52 Oxycodone/Acetaminophen (Percocet 5/325 Mg Tab) 2 tab PO Q4 PRN PRN Reason: Pain, moderate (4-7) Stop: 06/09/18 10:52 Last Admin: 06/06/18 23:20 Dose: 2 tab - Labs Labs: 06/07/18 04:30 06/07/18 04:30 PT 11.5 Seconds (9.8-13.1) 06/05/18 11:43 INR 1.0 06/05/18 11:43 APTT 29.6 Seconds (25.6-37.1) 06/05/18 11:43 - Back Exam Additional comments: ABd binder intact Dress[place] CDI HENNY drain with moderate bloody drainage (120cc in 24 hrs) sensation intact SP/DP/TN motor intact EHL/FHL neg clonus Assessment and Plan (1) Lumbar spondylosis Assessment & Plan: POD#1 s/p L5-S1 laminotomy -maintain drain, monitor drainage, possible removal tomorrow -continue IV abx until drain removed -activity as tolerated, PT/OT -d/c planning for home tomorrow if drain removed -above d/w Dr. Bess in agreement Status: Acute
--- NOTE | 2018-06-07 13:53 | CP.PCM.PN ---
Subjective - Date & Time of Evaluation Date of Evaluation: 06/07/18 Time of Evaluation: 10:00 - Subjective Subjective: patient seen and examined at bedside. no complaints offered denies chest pain, sob, palpitations pain is well controlled Objective - Vital Signs/Intake and Output Vital Signs (last 24 hours): Temp Pulse Resp BP Pulse Ox 98.2 F 116 H 20 115/65 99 06/07/18 12:21 06/07/18 12:21 06/07/18 12:21 06/07/18 12:21 06/07/18 12:21 Intake and Output: 06/07/18 06/07/18 06:59 18:59 Intake Total 1500 Output Total 65 Balance 1435 - Medications Medications: Current Medications Acetaminophen (Tylenol 325mg Tab) 650 mg PO Q4 PRN PRN Reason: Fever 101 degrees fahrenheit Cyclobenzaprine HCl (Flexeril) 10 mg PO Q8 PRN PRN Reason: Muscle spasm Dexamethasone (Decadron) 4 mg PO Q12 [facility] Stop: 06/09/18 23:16 Last Admin: 06/07/18 09:54 Dose: 4 mg Docusate Sodium (Colace) 100 mg PO BID [facility] Last Admin: 06/07/18 09:53 Dose: 100 mg Cefazolin Sodium 2 gm/ Sodium (Chloride) 100 mls @ 100 mls/hr IVPB Q8 [facility]; Protocol Stop: 06/08/18 17:01 Last Admin: 06/07/18 09:50 Dose: 100 mls/hr Morphine Sulfate (Morphine) 2 mg IVP Q4 PRN PRN Reason: Pain, severe (8-10) Ondansetron HCl (Zofran Inj) 4 mg IVP Q4 PRN PRN Reason: Nausea/Vomiting Oxycodone/Acetaminophen (Percocet 5/325 Mg Tab) 1 tab PO Q4 PRN PRN Reason: Pain, Mild (1-3) Stop: 06/09/18 10:52 Oxycodone/Acetaminophen (Percocet 5/325 Mg Tab) 2 tab PO Q4 PRN PRN Reason: Pain, moderate (4-7) Stop: 06/09/18 10:52 Last Admin: 06/06/18 23:20 Dose: 2 tab - Labs Labs: 06/07/18 04:30 06/07/18 04:30 PT 11.5 Seconds (9.8-13.1) 06/05/18 11:43 INR 1.0 06/05/18 11:43 APTT 29.6 Seconds (25.6-37.1) 06/05/18 11:43 - Constitutional Appears: Non-toxic, No Acute Distress - Head Exam Head Exam: NORMAL INSPECTION - Eye Exam Eye Exam: Normal appearance - Respiratory Exam Respiratory Exam: NORMAL BREATHING PATTERN - Cardiovascular Exam Cardiovascular Exam: +S1, +S2 - Neurological Exam Neurological Exam: Alert, Awake - Psychiatric Exam Psychiatric exam: Normal Affect, Normal Mood - Skin Skin Exam: Normal Color, Warm Assessment and Plan (1) Lumbar spondylosis Status: Acute - Assessment and Plan (Free Text) Assessment: available diagnostic data reviewed monitor labs monitor vitals appreciate recommendations per consultants dispo planning for tomorrow pending drain continue tx rest of plan as ordered
[2018-06-08 05:17] LABS: HEMOGLOBIN 12.2 g/dL (12.0-18.0); MEAN CELL VOLUME 88.3 fl (80.0-94.0); MEAN CORPUSCULAR HEMOGLOBIN 29.5 pg (27.0-31.0); MEAN CORPUSCULAR HGB CONC 33.4 g/dL (33.0-37.0); RBC 4.14 Mil/uL (4.40-5.90); RED CELL DISTRIBUTION WIDTH 13.1 % (11.5-14.5); WHITE BLOOD COUNT 15.8 K/uL (4.8-10.8)
[2018-06-08 05:32] LABS: BLOOD UREA NITROGEN 17 mg/dl (9-20); CALCIUM 9.2 mg/dL (8.4-10.2); GFR NON-AFRICAN AMERICAN > 60
--- NOTE | 2018-06-08 09:19 | CP.PCM.PN ---
Subjective - Date & Time of Evaluation Date of Evaluation: 06/08/18 Time of Evaluation: 09:17 - Subjective Subjective: Patient states pain in back in controlled. THe left thigh pain that he was having preop has resolved. No new complaints. Objective - Vital Signs/Intake and Output Vital Signs (last 24 hours): Temp Pulse Resp BP Pulse Ox 98.5 F 91 H 18 134/79 98 06/08/18 08:22 06/08/18 08:22 06/08/18 08:22 06/08/18 08:22 06/08/18 08:22 Intake and Output: 06/08/18 06/08/18 06:59 18:59 Intake Total 200 Output Total 30 Balance 170 - Medications Medications: Current Medications Acetaminophen (Tylenol 325mg Tab) 650 mg PO Q4 PRN PRN Reason: Fever 101 degrees fahrenheit Cyclobenzaprine HCl (Flexeril) 10 mg PO Q8 PRN PRN Reason: Muscle spasm Dexamethasone (Decadron) 4 mg PO Q12 [facility] Stop: 06/09/18 23:16 Last Admin: 06/07/18 21:06 Dose: 4 mg Docusate Sodium (Colace) 100 mg PO BID [facility] Last Admin: 06/07/18 16:24 Dose: 100 mg Morphine Sulfate (Morphine) 2 mg IVP Q4 PRN PRN Reason: Pain, severe (8-10) Ondansetron HCl (Zofran Inj) 4 mg IVP Q4 PRN PRN Reason: Nausea/Vomiting Oxycodone/Acetaminophen (Percocet 5/325 Mg Tab) 1 tab PO Q4 PRN PRN Reason: Pain, Mild (1-3) Stop: 06/09/18 10:52 Oxycodone/Acetaminophen (Percocet 5/325 Mg Tab) 2 tab PO Q4 PRN PRN Reason: Pain, moderate (4-7) Stop: 06/09/18 10:52 Last Admin: 06/06/18 23:20 Dose: 2 tab - Labs Labs: 06/08/18 04:20 06/08/18 04:20 PT 11.5 Seconds (9.8-13.1) 06/05/18 11:43 INR 1.0 06/05/18 11:43 APTT 29.6 Seconds (25.6-37.1) 06/05/18 11:43 - Back Exam Additional comments: hemovac 30 overnight, 90 last 24 hours 5/5 great toes ext, DF/PF, knee flex, extension sensation intact L2-S1 +DP/PT pulses calves soft NT neg homans Assessment and Plan (1) Lumbar spondylosis Assessment & Plan: POD#2 s/p L5/S1 laminectomy cont PT/OT d/w Dr. Bess regarding drainage, states to leave drain in today. Plan to d/c when drainage subsides VTE proph encourage OOB Status: Acute
[2018-06-08] MEDS: ceFAZolin 1 GM in Sodium Chloride 0.9% 100 ML IVPB SCH ×2 (12:49→16:44)
--- NOTE | 2018-06-08 14:28 | PQF ---
PROVIDER RESPONSE TEXT: Provider was unable to determine a response for this query. REVIEWER QUERY TEXT: Asthma Specificity and Type Asthma is documented in the Medical Record. Please specify the type if known: -- Mild intermittent -- Mild persistent -- Moderate persistent -- Severe persistent -- Exercise induced bronchospasm -- Cough variant asthma -- Other, please specify H and P: - PULMONARY Hx Respiratory Disorders: Yes (asthma) Hx Asthma: Yes (last attack 2015) The patient's Clinical Indicators include: --- Query created by: Fay Spence on 06/07/2018 3:00 PM Electronically signed by: Min Alcantar MD 06/08/2018 2:24 PM
[2018-06-09] MEDS: ceFAZolin 1 GM in Sodium Chloride 0.9% 100 ML IVPB SCH ×3 (00:09→17:34)
[2018-06-09 06:39] LABS: HEMOGLOBIN 12.7 g/dL (12.0-18.0); MEAN CELL VOLUME 86.9 fl (80.0-94.0); MEAN CORPUSCULAR HEMOGLOBIN 29.9 pg (27.0-31.0); MEAN CORPUSCULAR HGB CONC 34.4 g/dL (33.0-37.0); RBC 4.24 Mil/uL (4.40-5.90); RED CELL DISTRIBUTION WIDTH 13.2 % (11.5-14.5); WHITE BLOOD COUNT 15.1 K/uL (4.8-10.8)
[2018-06-09 06:56] LABS: BLOOD UREA NITROGEN 18 mg/dl (9-20); CALCIUM 9.7 mg/dL (8.4-10.2); GFR NON-AFRICAN AMERICAN > 60
[2018-06-09 16:00] VITALS: BP 108/62; PULSE 66; RESP 20; TEMP 98.3; O2SAT 99
--- NOTE | 2018-06-09 17:39 | CP.PCM.PN ---
Subjective - Date & Time of Evaluation Date of Evaluation: 06/08/18 Time of Evaluation: 11:00 - Subjective Subjective: Ps\atient had chest pain last night. Troponin was negative EKG was unremarkable Objective - Vital Signs/Intake and Output Vital Signs (last 24 hours): Temp Pulse Resp BP Pulse Ox 98.3 F 66 20 108/62 99 06/09/18 15:59 06/09/18 15:59 06/09/18 15:59 06/09/18 15:59 06/09/18 15:59 - Medications Medications: Current Medications Acetaminophen (Tylenol 325mg Tab) 650 mg PO Q4 PRN PRN Reason: Fever 101 degrees fahrenheit Cyclobenzaprine HCl (Flexeril) 10 mg PO Q8 PRN PRN Reason: Muscle spasm Dexamethasone (Decadron) 4 mg PO Q12 [facility] Stop: 06/09/18 23:16 Last Admin: 06/09/18 09:59 Dose: 4 mg Docusate Sodium (Colace) 100 mg PO BID [facility] Last Admin: 06/09/18 09:59 Dose: 100 mg Cefazolin Sodium 1 gm/ Sodium (Chloride) 100 mls @ 100 mls/hr IVPB Q8 [facility]; Protocol Last Admin: 06/09/18 09:58 Dose: 100 mls/hr Morphine Sulfate (Morphine) 2 mg IVP Q4 PRN PRN Reason: Pain, severe (8-10) Ondansetron HCl (Zofran Inj) 4 mg IVP Q4 PRN PRN Reason: Nausea/Vomiting - Labs Labs: 06/09/18 04:30 06/09/18 04:30 PT 11.5 Seconds (9.8-13.1) 06/05/18 11:43 INR 1.0 06/05/18 11:43 APTT 29.6 Seconds (25.6-37.1) 06/05/18 11:43 - Head Exam Head Exam: NORMAL INSPECTION - Eye Exam Eye Exam: Normal appearance - ENT Exam ENT Exam: Mucous Membranes Moist - Cardiovascular Exam Cardiovascular Exam: REGULAR RHYTHM - GI/Abdominal Exam GI & Abdominal Exam: Normal Bowel Sounds - Neurological Exam Neurological Exam: Awake Assessment and Plan (1) Lumbosacral disc herniation Status: Acute (2) Lumbosacral radiculopathy at S1 Status: Acute (3) Lumbosacral radiculopathy at L5 Status: Acute - Assessment and Plan (Free Text) Plan: Cont meds Cont tx Pain meds discharge plan in am
--- NOTE | 2018-06-09 17:40 | CP.PCM.DIS ---
Provider - Provider Date of Admission: 06/05/18 10:54 Attending physician: Min Alcantar MD Consults: 06/05/18 13:04 Neuro Surgery Consult Stat Comment: Consulting Provider: Bill Bess Consulting Physician: Bill Bess Reason for Consult: intractable back pain 06/06/18 10:51 Case Management Referral Routine Comment: Physician Instructions: Reason For Exam: Reason for Referral: Discharge Planning Time Spent in preparation of Discharge (in minutes): 30 Diagnosis - Discharge Diagnosis (1) Lumbosacral disc herniation Status: Acute (2) Lumbosacral radiculopathy at S1 Status: Acute (3) Lumbosacral radiculopathy at L5 Status: Acute Hospital Course - Lab Results Lab Results: Most Recent Lab Values WBC 15.1 K/uL (4.8-10.8) H 06/09/18 04:30 RBC 4.24 Mil/uL (4.40-5.90) L 06/09/18 04:30 Hgb 12.7 g/dL (12.0-18.0) 06/09/18 04:30 Hct 36.9 % (35.0-51.0) 06/09/18 04:30 MCV 86.9 fl (80.0-94.0) 06/09/18 04:30 MCH 29.9 pg (27.0-31.0) 06/09/18 04:30 MCHC 34.4 g/dL (33.0-37.0) 06/09/18 04:30 RDW 13.2 % (11.5-14.5) 06/09/18 04:30 Plt Count 265 K/uL (130-400) 06/09/18 04:30 MPV 8.4 fl (7.2-11.7) 06/05/18 11:43 Neut % (Auto) 53.7 % (50.0-75.0) 06/05/18 11:43 Lymph % (Auto) 35.4 % (20.0-40.0) 06/05/18 11:43 [place] % (Auto) 9.5 % (0.0-10.0) 06/05/18 11:43 Eos % (Auto) 1.0 % (0.0-4.0) 06/05/18 11:43 Baso % (Auto) 0.4 % (0.0-2.0) 06/05/18 11:43 Neut # (Auto) 3.9 K/uL (1.8-7.0) 06/05/18 11:43 Lymph # (Auto) 2.6 K/uL (1.0-4.3) 06/05/18 11:43 [place] # (Auto) 0.7 K/uL (0.0-0.8) 06/05/18 11:43 Eos # (Auto) 0.1 K/uL (0.0-0.7) 06/05/18 11:43 Baso # (Auto) 0.0 K/uL (0.0-0.2) 06/05/18 11:43 PT 11.5 Seconds (9.8-13.1) 06/05/18 11:43 INR 1.0 06/05/18 11:43 APTT 29.6 Seconds (25.6-37.1) 06/05/18 11:43 Sodium 140 mmol/l (132-148) 06/09/18 04:30 Potassium 4.3 MMOL/L (3.6-5.0) 06/09/18 04:30 Chloride 100 mmol/L (98-107) 06/09/18 04:30 Carbon Dioxide 24 mmol/L (22-30) 06/09/18 04:30 Anion Gap 20 (10-20) 06/09/18 04:30 BUN 18 mg/dl (9-20) 06/09/18 04:30 Creatinine 0.8 mg/dl (0.8-1.5) 06/09/18 04:30 Est GFR ( Amer) > 60 06/09/18 04:30 Est GFR (Non-Af Amer) > 60 06/09/18 04:30 Random Glucose 108 mg/dL (75-110) 06/09/18 04:30 Calcium 9.7 mg/dL (8.4-10.2) 06/09/18 04:30 Troponin I < 0.0120 ng/mL (0.00-0.120) 06/07/18 12:38 Urine Color Yellow (YELLOW) 06/05/18 13:25 Urine Clarity Slighty-cloudy (Clear) 06/05/18 13:25 Urine pH 7.0 (5.0-8.0) 06/05/18 13:25 Ur Specific [place] 1.021 (1.003-1.030) 06/05/18 13:25 Urine Protein Negative mg/dL (NEGATIVE) 06/05/18 13:25 Urine Glucose (UA) Neg mg/dL (NEGATIVE) 06/05/18 13:25 Urine Ketones Negative mg/dL (NEGATIVE) 06/05/18 13:25 Urine Blood Negative (NEGATIVE) 06/05/18 13:25 Urine Nitrate Negative (NEGATIVE) 06/05/18 13:25 Urine Bilirubin Negative (NEGATIVE) 06/05/18 13:25 Urine Urobilinogen 0.2-1.0 mg/dL (0.2-1.0) 06/05/18 13:25 Ur Leukocyte Esterase Neg Naif/uL (Negative) 06/05/18 13:25 Urine RBC (Auto) 1 /hpf (0-3) 06/05/18 13:25 Urine Microscopic WBC 1 /hpf (0-5) 06/05/18 13:25 Ur Squamous Epith Cells < 1 /hpf (0-5) 06/05/18 13:25 Blood Type O POSITIVE 06/05/18 16:18 Blood Type Confirm O POSITIVE 06/05/18 16:30 Antibody Screen Negative 06/05/18 16:18 BBK History Checked No verified bt 06/05/18 16:18 - Hospital Course Hospital Course: This is a 32 y/o male admitted [id number] lumbar laminectomy. He did very well postop. There was a lot of drainage though. On the 2nd post op day he had some chest pain but troponin and EKG were unremarkable He was discharged in stable condition 0n 2/9 and drain was removed. Discharge Exam - Head Exam Head Exam: NORMAL INSPECTION - Eye Exam Eye Exam: Normal appearance - Respiratory Exam Respiratory Exam: Clear to PA & Lateral, NORMAL BREATHING PATTERN - Cardiovascular Exam Cardiovascular Exam: REGULAR RHYTHM - GI/Abdominal Exam GI & Abdominal Exam: Normal Bowel Sounds - Neurological Exam Neurological exam: CN II-XII Intact, Oriented x3 Discharge Plan - Follow Up Plan Condition: FAIR Disposition: HOME/ ROUTINE Instructions: Laminectomy, Postspine Surgery Precautions Additional Instructions: follow up with in 1 week Referrals: Bill Bess MD [Staff Provider] - Min Alcantar MD [Staff Provider] - Nitish Vang DO [Family Provider] -
== END 2018-06-09 18:30 | disposition home or self-care (01) | DRG 520 ==
LOC: H.ER 09:53 → H.ERHOLD 10:54 → H.PEDS 14:56 → H.TEL 06-07 01:08
PROVIDERS: ADMIT Family Medicine; ATTEND Family Medicine
PROC: 0ST40ZZ Resection of Lumbosacral Disc, Open Approach (ICD-10-PCS; principal; 2018-06-06 09:15)
DX: M51.27 Other intervertebral disc displacement, lumbosacral region (principal); M47.816 Spondylosis without myelopathy or radiculopathy, lumbar region; M48.00 Spinal stenosis, site unspecified; J45.909 Unspecified asthma, uncomplicated; M51.17 Intervertebral disc disorders with radiculopathy, lumbosacral region; R07.9 Chest pain, unspecified; K20.9 Esophagitis, unspecified